=== PATIENT | male | born 1975 | race Caucasian/White ===

== ENCOUNTER 2019-01-08 17:16 | Emergency (ER) | payer MEDICARE ==
[~2019-01-08] VITALS: Ht 185.4 cm; Wt 122.5 kg
[2019-01-08 17:48] VITALS: BP 151/90
[2019-01-08] MEDS: IBUPROFEN 200 MG TABLET. PO ONE (18:45)
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
== END 2019-01-08 19:02 | disposition home or self-care (01) ==
LOC: ER 17:16
DX: T22.111A Burn of first degree of right forearm, initial encounter (principal); E11.9 Type 2 diabetes mellitus without complications; X16.XXXA Contact with hot heating appliances, radiators and pipes, initial encounter; Y93.89 Activity, other specified; Y92.89 Other specified places as the place of occurrence of the external cause; Y99.8 Other external cause status
CPT/HCPCS: 16020; 99284-25